=== PATIENT | male | born 1965 | race African-American/Black ===

== ENCOUNTER 2017-03-13 15:00 | Emergency (ER) | payer OTHER ==
[~2017-03-13] VITALS: Ht 167.6 cm; Wt 63.5 kg
[2017-03-13 16:55] LABS: EOSINOPHIL (%) 4.3 % (0-5); EOSINOPHIL COUNT 0.2 K/uL (0-0.3); HEMATOCRIT 42.7 % (38.0-50.0); IMMATURE GRANULOCYTE (%) 0.3 % (0.0-0.7); INSTRUMENT ABS NEUTROPHIL CT 1.3 K/uL; LYMPHOCYTE COUNT 1.7 K/uL (1.0-2.8); MCH 28.6 PG (29.0-34.0); MCHC 32.6 G/DL (30.0-36.0); MCV 87.9 FL (86-99); MEAN PLAT.VOLUME 9.8 uM^3 (9.0-12.4); MONOCYTE (%) 15.5 % (3-12); MONOCYTE COUNT 0.6 K/uL (0-0.8); NEUTROPHIL (%) 34.4 % (45-76); NEUTROPHIL COUNT 1.3 K/uL (1.8-6.4); PLATELET COUNT 217 K/uL (156-360); RBC DIS.WIDTH-CV 14.2 % (11.8-14.6); RBC DIS.WIDTH-SD 45.5 % (39-53); RED BLOOD COUNT 4.86 M/uL (4.00-5.50); WHITE BLOOD COUNT 3.7 K/uL (4.1-10.2)
[2017-03-13 17:08] LABS: CHLORIDE 106 mEq/L (99-109); POTASSIUM 4.4 mEq/L (3.7-5.4); SODIUM 140 mEq/L (136-147)
[2017-03-13 17:08] LABS: ADD MIUA? NO; BILIRUBIN NEGATIVE; BLOOD NEGATIVE; COLOR STRAW ((YELLOW)); GLUCOSE (STRIP) NEGATIVE; KETONES NEGATIVE; LEUKOCYTES NEGATIVE; NITRITE NEGATIVE; PROTEIN (STRIP) NEGATIVE; SPECIFIC GRAVITY 1.003 (1.000-1.030); UROBILINOGEN 0.2 MG/DL (0.2-1.0)
[2017-03-13 17:09] LABS: AMYLASE 103 IU/L (1-118)
[2017-03-13 17:10] LABS: GLUCOSE 89 mg/dL (70-99)
[2017-03-13 17:11] LABS: ANION GAP 14 MEQ/L (2-14)
[2017-03-13 17:12] LABS: TOTAL BILIRUBIN 0.6 mg/dL (0.0-1.0)
[2017-03-13 17:13] LABS: ALKALINE PHOSPHATASE 82 IU/L (3-129); SERUM ETHYL ALCOHOL < 10 mg/dL
[2017-03-13 17:14] LABS: GFR ESTIMATE (CALCULATED) > 59 mL/min/
[2017-03-13 17:15] LABS: UREA NITROGEN (BUN) 7 mg/dL (9-23)
[2017-03-13 17:17] LABS: LIPASE 21 U/L (1.0-51.0)
[2017-03-13 17:17] LABS: AMPHETAMINE NEGATIVE (500 ng/mL); BARBITURATES NEGATIVE (200 ng/mL); BENZODIAZEPINES NEGATIVE (150 ng/mL); COCAINE NEGATIVE (150 ng/mL); INTERNAL CONTROLS VALID? YES; METHADONE NEGATIVE (200 ng/mL); METHAMPHETAMINE NEGATIVE (500 ng/mL); OPIATES (MORPHINE) NEGATIVE (100 ng/mL); OXYCODONE NEGATIVE (100 ng/mL); PHENCYCLIDINE NEGATIVE (25 ng/mL); PROPOXYPHENE NEGATIVE (300 ng/mL); THC CANNABINOIDS NEGATIVE (50 ng/mL); TRICYCLIC ANTIDEPRESSANTS NEGATIVE (300 ng/mL)
[2017-03-13] MEDS ORDERED: LEVAQUIN500 MG PO (17:44)
[2017-03-13] MEDS ORDERED: NAPROSYN500 MG PO (17:44)
[2017-03-13] MEDS ORDERED: MUCINEX1200 MG PO (17:44)
[2017-03-13] MEDS ORDERED: ZANTAC300 MG PO (17:46)
[2017-03-13] MEDS ORDERED: REGLAN10 MG PO (17:46)
[2017-03-13 18:19] VITALS: BP 139/93
== END 2017-03-13 18:22 | disposition home or self-care (01) ==
LOC: EME 15:00
PROVIDERS: Physician Assistant
DX: R06.6 Hiccough (principal); J32.2 Chronic ethmoidal sinusitis; K21.9 Gastro-esophageal reflux disease without esophagitis; Z87.820 Personal history of traumatic brain injury; F17.200 Nicotine dependence, unspecified, uncomplicated
CPT/HCPCS: 70450; 71020; 74020; 80053; 81003; 82150; 82977; 83690; 85025; 86780; 99281; 99284; G0480

== ENCOUNTER 2017-03-30 08:18 | Emergency (ER) | payer OTHER ==
[~2017-03-30] VITALS: Ht 167.6 cm; Wt 65.4 kg
[~2017-03-30 08:18] MED LIST: LEVAQUIN500 MG PO; MUCINEX1200 MG PO; NAPROSYN500 MG PO; REGLAN10 MG PO; ZANTAC300 MG PO
[2017-03-30 10:17] LABS: EOSINOPHIL (%) 4.9 % (0-5); EOSINOPHIL COUNT 0.2 K/uL (0-0.3); HEMATOCRIT 39.1 % (38.0-50.0); IMMATURE GRANULOCYTE (%) 0.2 % (0.0-0.7); INSTRUMENT ABS NEUTROPHIL CT 2.2 K/uL; LYMPHOCYTE COUNT 1.7 K/uL (1.0-2.8); MCH 28.8 PG (29.0-34.0); MCV 87.3 FL (86-99); MONOCYTE (%) 13.8 % (3-12); MONOCYTE COUNT 0.7 K/uL (0-0.8); NEUTROPHIL (%) 45.1 % (45-76); NEUTROPHIL COUNT 2.2 K/uL (1.8-6.4); PLATELET COUNT 216 K/uL (156-360); RBC DIS.WIDTH-CV 14.5 % (11.8-14.6); RBC DIS.WIDTH-SD 46.3 % (39-53); RED BLOOD COUNT 4.48 M/uL (4.00-5.50); WHITE BLOOD COUNT 4.9 K/uL (4.1-10.2)
[2017-03-30 10:25] LABS: CHLORIDE 109 mEq/L (99-109); POTASSIUM 4.1 mEq/L (3.7-5.4); SODIUM 142 mEq/L (136-147)
[2017-03-30 10:27] LABS: GLUCOSE 93 mg/dL (70-99)
[2017-03-30 10:28] LABS: ANION GAP 9 MEQ/L (2-14)
[2017-03-30 10:31] LABS: ALKALINE PHOSPHATASE 83 IU/L (3-129); GFR ESTIMATE (CALCULATED) > 59 mL/min/
[2017-03-30 10:32] LABS: UREA NITROGEN (BUN) 14 mg/dL (9-23)
[2017-03-30] MEDS ORDERED: PEPCID20 MG PO ×2 (11:48→11:54)
[2017-03-30 12:10] VITALS: BP 147/94
== END 2017-03-30 12:11 | disposition home or self-care (01) ==
LOC: EME 08:18
PROVIDERS: Physician Assistant
DX: K21.9 Gastro-esophageal reflux disease without esophagitis (principal); K29.70 Gastritis, unspecified, without bleeding; Z87.891 Personal history of nicotine dependence
CPT/HCPCS: 71020; 80053; 85025; 99281; 99284